=== PATIENT | male | born 1985 | race Caucasian/White ===

== ENCOUNTER 2018-06-29 12:20 | Inpatient (IN) | payer OTHER, MEDICAID ==
--- NOTE | 2018-06-29 13:02 | ED ---
General Adult HPI - General Source: patient, police, RN notes reviewed, old records reviewed Mode of arrival: ambulatory Limitations: no limitations <Celso Snell - Last Filed: 06/29/18 21:00> <Beny Montiel - Last Filed: 06/30/18 19:35> - General Chief complaint: Psychiatric Symptoms Stated complaint: Mental Health Time Seen by Provider: 06/29/18 12:35 - History of Present Illness Initial comments: 33-year-old male presenting for psychiatric evaluation. Patient is brought in by state police. Patient's had been concerned as the patient was making some comments including "please tell the children I love them", he then left the home with and axe. Patient denies specific suicidal ideation. He has had some anger issues and increased agitation. He's had a verbal altercation with his [id number] and has been quite frustrated with this relationship. He denies specific homicidal ideation although I believe that his may have been concerned when he was taking the Axe from the house. No right medical problems. No other complaints. (Celso Snell) - Related Data Home Medications Medication Instructions Recorded Confirmed Unable To Assess [Unable to Assess] 06/29/18 06/29/18 Allergies Allergy/AdvReac Type Severity Reaction Status Date / Time venlafaxine Allergy Unknown Verified 06/30/18 19:18 Review of Systems ROS Other: All systems not noted in ROS Statement are negative. <Celso Snell - Last Filed: 06/29/18 21:00> ROS Other: All systems not noted in ROS Statement are negative. <Beny Montiel - Last Filed: 06/30/18 19:35> ROS Statement: Those systems with pertinent positive or pertinent negative responses have been documented in the HPI. Past Medical History Past Medical History: No Reported History History of Any Multi-Drug Resistant Organisms: MRSA Date of last positivie culture/infection: 2010 Past Surgical History: No Surgical Hx Reported Past Psychological History: PTSD Smoking Status: Current every day smoker Past Alcohol Use History: None Reported Past Drug Use History: Marijuana <Celso Snell - Last Filed: 06/29/18 21:00> General Exam Limitations: no limitations General appearance: alert, in no apparent distress Head exam: Present: atraumatic, normocephalic Eye exam: Present: normal appearance, PERRL ENT exam: Present: normal exam Neck exam: Present: normal inspection. Absent: tenderness, meningismus Respiratory exam: Present: normal lung sounds bilaterally. Absent: respiratory distress, wheezes GI/Abdominal exam: Present: soft. Absent: distended, tenderness Neurological exam: Present: alert, oriented X3, CN II-XII intact, motor sensory deficit Psychiatric exam: Present: agitated. Absent: homicidal ideation, suicidal ideation Skin exam: Present: warm, dry, intact. Absent: cyanosis, diaphoretic <Celso Snell - Last Filed: 06/29/18 21:00> Course <Celso Snell - Last Filed: 06/29/18 21:00> <Beny oMntiel - Last Filed: 06/30/18 19:35> Vital Signs 06/29/18 06/29/18 06/30/18 12:40 16:41 06:00 Temperature 98.1 F 97.7 F Pulse Rate 92 79 62 Respiratory 18 16 16 Rate Blood Pressure 147/81 139/71 121/71 O2 Sat by Pulse 92 L 96 99 Oximetry 06/30/18 06/30/18 16:46 19:08 Temperature 97.9 F 98.7 F Pulse Rate 66 66 Respiratory 18 18 Rate Blood Pressure 112/56 135/63 O2 Sat by Pulse 99 99 Oximetry - Reevaluation(s) Reevaluation #1: 06/29/18 1734 Patient medically cleared, awaiting EPS evaluation and final disposition. ( Celso Snell) 06/30/18 19:33 Notified by mental health services requesting a new clinical certificate for patient. Patient was reevaluated by myself, Dr. Montiel. Patient states he started medication for anger and PTSD around 6 weeks ago. Patient has been taking this. Patient states despite this she feels like symptoms are getting worse. Patient does admit to having anger problems and thoughts of harming people. Patient denies suicidal thoughts. Patient denies hallucinations. Patient denies physical complaints. Patient denies alcohol or street drug use except for occasional marijuana. Petition does have concern for patient caring around and acts and threatening family members with it. There is also concern for suicidal statements and concerns for auditory hallucinations. Positive clinical certificate completed. (Beny Montiel) Medical Decision Making - Lab Data Result diagrams: 06/29/18 17:57 06/29/18 17:57 <Celso Snell - Last Filed: 06/29/18 21:00> - Lab Data Result diagrams: 06/29/18 17:57 06/29/18 17:57 <Beny Montiel - Last Filed: 06/30/18 19:35> - Lab Data Lab Results 06/29/18 06/29/18 06/29/18 Range/Units 12:52 12:52 17:57 WBC 7.1 (3.8-10.6) k/uL RBC 4.85 (4.30-5.90) m/uL Hgb 14.9 (13.0-17.5) gm/dL Hct 44.5 (39.0-53.0) % MCV 91.8 (80.0-100.0) fL MCH 30.7 (25.0-35.0) pg MCHC 33.4 (31.0-37.0) g/dL RDW 13.3 (11.5-15.5) % Plt Count 223 (150-450) k/uL Neutrophils % 59 % Lymphocytes % 31 % Monocytes % 4 % Eosinophils % 4 % Basophils % 0 % Neutrophils # 4.2 (1.3-7.7) k/uL Lymphocytes # 2.2 (1.0-4.8) k/uL Monocytes # 0.3 (0-1.0) k/uL Eosinophils # 0.3 (0-0.7) k/uL Basophils # 0.0 (0-0.2) k/uL Sodium (137-145) mmol/L Potassium (3.5-5.1) mmol/L Chloride (98-107) mmol/L Carbon Dioxide (22-30) mmol/L Anion Gap mmol/L BUN (9-20) mg/dL Creatinine (0.66-1.25) mg/dL Est GFR (CKD-EPI)AfAm (>60 ml/min/1.73 sqM) Est GFR (CKD-EPI)NonAf (>60 ml/min/1.73 sqM) Glucose (74-99) mg/dL Calcium (8.4-10.2) mg/dL Total Bilirubin (0.2-1.3) mg/dL AST (17-59) U/L ALT (21-72) U/L Alkaline Phosphatase (38-126) U/L Total Protein (6.3-8.2) g/dL Albumin (3.5-5.0) g/dL Urine Color Yellow Urine Appearance Clear (Clear) Urine pH 6.5 (5.0-8.0) Ur Specific [place] 1.008 (1.001-1.035) Urine Protein Negative (Negative) Urine Glucose (UA) 2+ H (Negative) Urine Ketones Negative (Negative) Urine Blood Negative (Negative) Urine Nitrite Negative (Negative) Urine Bilirubin Negative (Negative) Urine Urobilinogen <2.0 (<2.0) mg/dL Ur Leukocyte Esterase Negative (Negative) Urine Opiates Screen Not Detected (NotDetected) Ur Oxycodone Screen Not Detected (NotDetected) Urine Methadone Screen Not Detected (NotDetected) Ur Propoxyphene Screen Not Detected (NotDetected) Ur Barbiturates Screen Not Detected (NotDetected) U Tricyclic Antidepress Not Detected (NotDetected) Ur Phencyclidine Scrn Not Detected (NotDetected) Ur Amphetamines Screen Not Detected (NotDetected) U Methamphetamines Scrn Not Detected (NotDetected) U Benzodiazepines Scrn Not Detected (NotDetected) Urine Cocaine Screen Not Detected (NotDetected) U Marijuana (THC) Screen Detected H (NotDetected) 06/29/18 Range/Units 17:57 WBC (3.8-10.6) k/uL RBC (4.30-5.90) m/uL Hgb (13.0-17.5) gm/dL Hct (39.0-53.0) % MCV (80.0-100.0) fL MCH (25.0-35.0) pg MCHC (31.0-37.0) g/dL RDW (11.5-15.5) % Plt Count (150-450) k/uL Neutrophils % % Lymphocytes % % Monocytes % % Eosinophils % % Basophils % % Neutrophils # (1.3-7.7) k/uL Lymphocytes # (1.0-4.8) k/uL Monocytes # (0-1.0) k/uL Eosinophils # (0-0.7) k/uL Basophils # (0-0.2) k/uL Sodium 144 (137-145) mmol/L Potassium 4.2 (3.5-5.1) mmol/L Chloride 113 H (98-107) mmol/L Carbon Dioxide 27 (22-30) mmol/L Anion Gap 4 mmol/L BUN 6 L (9-20) mg/dL Creatinine 0.72 (0.66-1.25) mg/dL Est GFR (CKD-EPI)AfAm >90 (>60 ml/min/1.73 sqM) Est GFR (CKD-EPI)NonAf >90 (>60 ml/min/1.73 sqM) Glucose 87 (74-99) mg/dL Calcium 9.1 (8.4-10.2) mg/dL Total Bilirubin 0.4 (0.2-1.3) mg/dL AST 25 (17-59) U/L ALT 33 (21-72) U/L Alkaline Phosphatase 69 (38-126) U/L Total Protein 6.5 (6.3-8.2) g/dL Albumin 3.8 (3.5-5.0) g/dL Urine Color Urine Appearance (Clear) Urine pH (5.0-8.0) Ur Specific [place] (1.001-1.035) Urine Protein (Negative) Urine Glucose (UA) (Negative) Urine Ketones (Negative) Urine Blood (Negative) Urine Nitrite (Negative) Urine Bilirubin (Negative) Urine Urobilinogen (<2.0) mg/dL Ur Leukocyte Esterase (Negative) Urine Opiates Screen (NotDetected) Ur Oxycodone Screen (NotDetected) Urine Methadone Screen (NotDetected) Ur Propoxyphene Screen (NotDetected) Ur Barbiturates Screen (NotDetected) U Tricyclic Antidepress (NotDetected) Ur Phencyclidine Scrn (NotDetected) Ur Amphetamines Screen (NotDetected) U Methamphetamines Scrn (NotDetected) U Benzodiazepines Scrn (NotDetected) Urine Cocaine Screen (NotDetected) U Marijuana (THC) Screen (NotDetected) Disposition <Celso Snell - Last Filed: 06/29/18 21:00> Is patient prescribed a controlled substance at d/c from ED?: No Decision Time: 19:35 <Beny Montiel - Last Filed: 06/30/18 19:35> Clinical Impression: Acute psychosis Disposition: TRANSFER TO PSYCH HOSP/UNIT
[2018-06-29 13:40] LABS: Amphetamine Screen,Urine Not Detected (NotDetected); Barbiturate Screen,Urine Not Detected (NotDetected); Benzodiazepines Screen,Urine Not Detected (NotDetected); Cocaine Screen,Urine Not Detected (NotDetected); Methadone Screen, Urine Not Detected (NotDetected); Opiate Screen,Urine Not Detected (NotDetected); Oxycodone Screen, Urine Not Detected (NotDetected); Phencyclidine Screen,Urine Not Detected (NotDetected); Tricyclic Antidepressant,Urine Not Detected (NotDetected); Urn Cannabinoid Scrn Detected (NotDetected)
[2018-06-29] MEDS ORDERED: LORazepam 1 MG TAB PO STA (15:03)
[2018-06-29 17:48] LABS: Appearance,Urine Clear (Clear); Bilirubin,Urine Negative (Negative); Blood,Urine Negative (Negative); Color,Urine Yellow; Glucose,Urine (UA) 2+ (Negative); Ketones,Urine Negative (Negative); Leukocyte Esterase,Urine Negative (Negative); Nitrite,Urine Negative (Negative); PH, Urine 6.5 (5.0-8.0); Protein,Urine Negative (Negative); Specific Gravity,Urine 1.008 (1.001-1.035); Urobilinogen,Urine <2.0 mg/dL (<2.0)
[2018-06-29 18:19] LABS: Basophils % (A) 0 %; Eosinophils # (A) 0.3 k/uL (0-0.7); Eosinophils % (A) 4 %; HCT 44.5 % (39.0-53.0); HGB 14.9 gm/dL (13.0-17.5); Lymphocytes # (A) 2.2 k/uL (1.0-4.8); Lymphocytes % (A) 31 %; MCH 30.7 pg (25.0-35.0); MCHC 33.4 g/dL (31.0-37.0); MCV 91.8 fL (80.0-100.0); Mean Platelet Volume 7.2; Monocytes # (A) 0.3 k/uL (0-1.0); Monocytes % (A) 4 %; Neutrophils # (A) 4.2 k/uL (1.3-7.7); Neutrophils % (A) 59 %; Platelet Count 223 k/uL (150-450); RBC 4.85 m/uL (4.30-5.90); RDW 13.3 % (11.5-15.5); WBC 7.1 k/uL (3.8-10.6)
[2018-06-29 18:31] LABS: ALT 33 U/L (21-72); AST 25 U/L (17-59); Albumin 3.8 g/dL (3.5-5.0); Alkaline Phosphatase 69 U/L (38-126); Anion Gap 4 mmol/L; Blood Urea Nitrogen 6 mg/dL (9-20); Calcium 9.1 mg/dL (8.4-10.2); Carbon Dioxide 27 mmol/L (22-30); Chloride 113 mmol/L (98-107); Glucose 87 mg/dL (74-99); Potassium 4.2 mmol/L (3.5-5.1); Sodium 144 mmol/L (137-145); Total Bilirubin 0.4 mg/dL (0.2-1.3); Total Protein 6.5 g/dL (6.3-8.2)
[2018-06-29] MEDS ORDERED: ZIPRASIDONE 20 MG CAP PO STA (23:49)
[2018-06-30] MEDS ORDERED: MAGNESIUM HYDROXIDE 2,400 MG/10 ML CUP PO PRN (20:51)
[2018-06-30] MEDS ORDERED: LORazepam 1 MG TAB PO PRN (20:51)
[2018-06-30] MEDS ORDERED: ZIPRASIDONE 20 MG VIAL IM PRN (20:51)
[2018-06-30] MEDS ORDERED: MAG HYDROX/AL HYDROX/SIMETH 30 ML CUP PO PRN (20:51)
[2018-06-30] MEDS ORDERED: diphenhydrAMINE 25 MG CAP PO PRN (21:17)
--- NOTE | 2018-06-30 21:18 | P.HPMEDMHU ---
History of Present Illness H&P Date: 06/30/18 Chief Complaint: MHU HPI The patient is a pleasant 33-year-old male with a past medical history of PTSD, anxiety, and depression who is admitted to the mental health unit with concerns for his safety after was purported by his that he was making comments suggestive of possible self-harm such as "please tell the children i Love them" and subsequently returned with an axe. Patient denies any suicidal or homicidal ideation. Reports a history of chronic PTSD which she has been self-medicating for the better part of the last 2 years with Adderall and Marijuana. [facility] and was [facility] a medication similar to Effexor which was incidentally discontinued due to severe rash. The patient is unable to recall the name of the medication, he does report a lower truncal abdominal and upper thigh rash over the last 4 weeks that seems to be dissipating, he reports the rash is not as itchy, not as inflamed and is not as bothersome as when it initially started. Patient also has a history of asthma that appears to be well controlled, he denies any cough shortness of breath or wheezes. Review of Systems Pertinent positives per HPI, all other review of systems are otherwise negative Past Medical History Past Medical History: No Reported History, Asthma Additional Past Medical History / Comment(s): Anxiety. Depression. PTSD History of Any Multi-Drug Resistant Organisms: MRSA Date of last positivie culture/infection: 2010 Past Surgical History: No Surgical Hx Reported Past Psychological History: PTSD Smoking Status: Current every day smoker Past Alcohol Use History: None Reported Past Drug Use History: Marijuana Medications and Allergies Home Medications Medication Instructions Recorded Confirmed Type Unable To Assess [Unable to Assess] 06/29/18 06/29/18 History Allergies Allergy/AdvReac Type Severity Reaction Status Date / Time venlafaxine Allergy Unknown Verified 06/30/18 19:18 Physical Exam Vitals: Vital Signs Temp Pulse Resp BP Pulse Ox 06/30/18 19:08 98.7 F 66 18 135/63 99 06/30/18 16:46 97.9 F 66 18 112/56 99 06/30/18 06:00 97.7 F 62 16 121/71 99 Constitutional: No acute distress, conversant, pleasant Eyes: Anicteric sclerae, moist conjunctiva, no lid-lag, PERRLA ENMT: NC/AT,Oropharynx clear, no erythema, exudates Neck:Supple, FROM, no masses, or JVD, No carotid bruits; No thyromegaly Lungs: Clear to auscultation, Clear to percussion, Normal respiratory effort, no accessory muscle use Cardiovascular: Heart regular in rate and rhythm, No murmurs, gallops, or rubs no peripheral edema Abdominal: Soft Nontender, nom distended, no guarding, no rebound or rigidity, Normoactive bowel sounds No hepatomegaly, No splenomegaly, No palpable mass No abdominal wall hernia noted Skin: Papular rash on lower abdomen/trunck Extremities:No digital cyanosis No clubbing, Pedal pulses intact and symmetrical Radial pulses intact and symmetrical Normal gait and station, No calf tenderness Psychiatric: Alert and oriented to person, place and time, Appropriate affect Intact judgement Neuro: Muscles Strength 5/5 in all 4 extremities, Sensation to light touch grossly present throughout, Cranial nerves II-XII grossly intact. No focal sensory deficits Cranial Nerve Examination - Cranial Nerves Cranial Nerve II- Optic: Intact Cranial Nerve III- Oculomotor: Intact Cranial Nerve IV- Trochlear: Intact Cranial Nerve V- Trigeminal: Intact Cranial Nerve - Abducens: Intact Cranial Nerve VII- Facial: Intact Cranial Nerve VIII- Auditory: Intact Cranial Nerve IX- Glossopharyngeal: Intact Cranial Nerve X- Vagus: Intact Cranial Nerve XI- Accessory: Intact Cranial Nerve XII- Hypoglossal: Intact Results CBC & Chem 7: 06/29/18 17:57 06/29/18 17:57 Assessment and Plan (1) PTSD (post-traumatic stress disorder) Current Visit: Yes Status: Acute Code(s): F43.10 - POST-TRAUMATIC STRESS DISORDER, UNSPECIFIED SNOMED Code(s): 63542955 (2) Depression Current Visit: Yes Status: Acute Code(s): F32.9 - MAJOR DEPRESSIVE DISORDER , SINGLE EPISODE, UNSPECIFIED SNOMED Code(s): 65575308 (3) Asthma, mild Current Visit: Yes Status: Acute Code(s): J45.998 - OTHER ASTHMA SNOMED Code(s): 527282110 (4) Allergic drug rash Current Visit: Yes Status: Acute Code(s): L27.0 - GEN SKIN ERUPTION DUE TO DRUGS AND MEDS TAKEN INTERNALLY SNOMED Code(s): 25473584 (5) Marijuana abuse Current Visit: Yes Status: Acute Code(s): F12.10 - CANNABIS ABUSE, UNCOMPLICATED SNOMED Code(s): 40294478 Plan: The patient is admitted to the mental health unit we'll defer to inpatient psychiatric team regarding ongoing psychotropic medications along with cognitive behavioral therapy treatment of this patient. Otherwise his medical issues seem to be pretty stable, apparently has mild intermittent asthma without any acute exacerbation. Has a drug induced ALLERGIC rash which seems to be improving, patient is not significantly itchy has no complaints at this time, we will start Benadryl when necessary itchiness. We'll likely sign off on this patient today For any further questions or concerns please do not hesitate to contact the sound inpatient team. We appreciate the opportunity to be involved in the ongoing care of this patient.
[2018-07-01] MEDS ORDERED: NICOTINE 21MG/24HR PATCH TRANSDERM SCH (09:00)
--- NOTE | 2018-07-01 14:15 | P.HP ---
Psychiatric H&P - . H&P Date: 07/01/18 History & Physical: Allergies Allergy/AdvReac Type Severity Reaction Status Date / Time duloxetine [From Cymbalta] Allergy Severe Rash/Hives Verified 07/01/18 09:54 venlafaxine Allergy Unknown Verified 06/30/18 21:26 Vital Signs Temp 97.9 F 07/01/18 00:48 Pulse 75 07/01/18 00:48 Resp 16 07/01/18 00:48 BP 120/82 07/01/18 00:48 Pulse Ox 99 06/30/18 21:57 Intake & Output 06/30/18 07/01/18 07/01/18 18:59 06:59 18:59 Weight 77.564 kg Laboratory Last Values WBC 7.1 k/uL (3.8-10.6) 06/29/18 17:57 RBC 4.85 m/uL (4.30-5.90) 06/29/18 17:57 Hgb 14.9 gm/dL (13.0-17.5) 06/29/18 17:57 Hct 44.5 % (39.0-53.0) 06/29/18 17:57 MCV 91.8 fL (80.0-100.0) 06/29/18 17:57 MCH 30.7 pg (25.0-35.0) 06/29/18 17:57 MCHC 33.4 g/dL (31.0-37.0) 06/29/18 17:57 RDW 13.3 % (11.5-15.5) 06/29/18 17:57 Plt Count 223 k/uL (150-450) 06/29/18 17:57 Neutrophils % 59 % 06/29/18 17:57 Lymphocytes % 31 % 06/29/18 17:57 Monocytes % 4 % 06/29/18 17:57 Eosinophils % 4 % 06/29/18 17:57 Basophils % 0 % 06/29/18 17:57 Neutrophils # 4.2 k/uL (1.3-7.7) 06/29/18 17:57 Lymphocytes # 2.2 k/uL (1.0-4.8) 06/29/18 17:57 Monocytes # 0.3 k/uL (0-1.0) 06/29/18 17:57 Eosinophils # 0.3 k/uL (0-0.7) 06/29/18 17:57 Basophils # 0.0 k/uL (0-0.2) 06/29/18 17:57 Sodium 144 mmol/L (137-145) 06/29/18 17:57 Potassium 4.2 mmol/L (3.5-5.1) 06/29/18 17:57 Chloride 113 mmol/L (98-107) H 06/29/18 17:57 Carbon Dioxide 27 mmol/L (22-30) 06/29/18 17:57 Anion Gap 4 mmol/L 06/29/18 17:57 BUN 6 mg/dL (9-20) L 06/29/18 17:57 Creatinine 0.72 mg/dL (0.66-1.25) 06/29/18 17:57 Est GFR (CKD-EPI)AfAm >90 (>60 ml/min/1.73 sqM) 06/29/18 17:57 Est GFR (CKD-EPI)NonAf >90 (>60 ml/min/1.73 sqM) 06/29/18 17:57 Glucose 87 mg/dL (74-99) 06/29/18 17:57 Calcium 9.1 mg/dL (8.4-10.2) 06/29/18 17:57 Total Bilirubin 0.4 mg/dL (0.2-1.3) 06/29/18 17:57 AST 25 U/L (17-59) 06/29/18 17:57 ALT 33 U/L (21-72) 06/29/18 17:57 Alkaline Phosphatase 69 U/L (38-126) 06/29/18 17:57 Total Protein 6.5 g/dL (6.3-8.2) 06/29/18 17:57 Albumin 3.8 g/dL (3.5-5.0) 06/29/18 17:57 TSH 2.110 mIU/L (0.465-4.680) 06/29/18 17:57 Urine Color Yellow 06/29/18 12:52 Urine Appearance Clear (Clear) 06/29/18 12:52 Urine pH 6.5 (5.0-8.0) 06/29/18 12:52 Ur Specific [place] 1.008 (1.001-1.035) 06/29/18 12:52 Urine Protein Negative (Negative) 06/29/18 12:52 Urine Glucose (UA) 2+ (Negative) H 06/29/18 12:52 Urine Ketones Negative (Negative) 06/29/18 12:52 Urine Blood Negative (Negative) 06/29/18 12:52 Urine Nitrite Negative (Negative) 06/29/18 12:52 Urine Bilirubin Negative (Negative) 06/29/18 12:52 Urine Urobilinogen <2.0 mg/dL (<2.0) 06/29/18 12:52 Ur Leukocyte Esterase Negative (Negative) 06/29/18 12:52 Urine Opiates Screen Not Detected (NotDetected) 06/29/18 12:52 Ur Oxycodone Screen Not Detected (NotDetected) 06/29/18 12:52 Urine Methadone Screen Not Detected (NotDetected) 06/29/18 12:52 Ur Propoxyphene Screen Not Detected (NotDetected) 06/29/18 12:52 Ur Barbiturates Screen Not Detected (NotDetected) 06/29/18 12:52 U Tricyclic Antidepress Not Detected (NotDetected) 06/29/18 12:52 Ur Phencyclidine Scrn Not Detected (NotDetected) 06/29/18 12:52 Ur Amphetamines Screen Not Detected (NotDetected) 06/29/18 12:52 U Methamphetamines Scrn Not Detected (NotDetected) 06/29/18 12:52 U Benzodiazepines Scrn Not Detected (NotDetected) 06/29/18 12:52 Urine Cocaine Screen Not Detected (NotDetected) 06/29/18 12:52 U Marijuana (THC) Screen Detected (NotDetected) H 06/29/18 12:52 Assessment and Plan Assessment: Chief Complaint: [Shalom Kumari was brought to the emergency room by state police due to threatening behavior ] History of Present Illness: 33-year-old male presenting for psychiatric evaluation. Patient is brought in by state police. Patient's had been concerned as the patient was making some comments including "please tell the children I love them", he then left the home with and axe. Patient denies specific suicidal ideation. He has had some anger issues and increased agitation. He's had a verbal altercation with his [id number] and has been quite frustrated with this relationship. He denies specific homicidal ideation although I believe that his may have been concerned when he was taking the Axe from the house. No right medical problems. No other complaints. :S[place] in [place]. PTSD "I feel I was put on drugs that I don't need." Currently on 30% [facility] [place]. Past Medical History Past Medical History: No Reported History History of Any Multi-Drug Resistant Organisms: MRSA Date of last positivie culture/infection: 2010 Past Surgical History: No Surgical Hx Reported Past Psychological History: PTSD Smoking Status: Current every day smoker Past Alcohol Use History: None Reported Past Drug Use History: Marijuana Social history: States he was raised in a dysfunctional family The patient is a pleasant 33-year-old male with a past medical history of PTSD, anxiety, and depression who is admitted to the mental health unit with concerns for his safety after was purported by his that he was making comments suggestive of possible self-harm such as "please tell the children i Love them" and subsequently returned with an axe. Patient denies any suicidal or homicidal ideation. Reports a history of chronic PTSD which she has been self-medicating for the better part of the last 2 years with Adderall and Marijuana. [facility] and was prescribed a medication similar to Effexor which was incidentally discontinued due to severe rash. The patient is unable to recall the name of the medication, he does report a lower truncal abdominal and upper thigh rash over the last 4 weeks that seems to be dissipating, he reports the rash is not as itchy, not as inflamed and is not as bothersome as when it initially started. Patient also has a history of asthma that appears to be well controlled, he denies any cough shortness of breath or wheezes. Musculoskeletal Examination - Abnormal/Involuntary Movements: [none] Strength: [greater than antigravity (greater than/equal to 3/5) in all extremities:] Muscle Tone: [no impairment] Gait: [grossly normal] Station: [grossly normal] Mental Status Examination - General Appearance: [well groomed,casual, appears stated age] Speech/Language: [spontaneous, rapid, hesitant, halting,expressive,soft] Attitude/Behavior: [cooperative, guarded, withdrawn] Mood: [depressed, , anxious, fearful, hopelessness, recounting his history became tearful and hesitant to take any medications because of his bad experience in the past due to addiction to Xanax and opiates. He recently had a bad experience with venlafaxine which caused a rash. Affect: [ flat, incongruent, labile, blunted constricted] Orientation: [time, person, place situation] Thought Content: [wnl, ] Risk Factors: [Does not admit suicidal (ideations, plan), and/or Homicidal ( ideations, plan), other] Perception: [wnl] Thought Processes: [ circumstantial Concentration/Attention Span: [wnl[Per observation and interview with the patient] Recent Memory: [wnl, 3 out of 3 in 3 minutes] Remote Memory: [impaired] [past events, as related history] Intelligence: [average] [based on history, based on vocabulary, syntax, grammar , and content] Judgement: [poor] [per patient's behavior/history of present illness] Insight: [poor] [understanding severity of illness/history of present illness] Admitting Diagnosis: [Major depressive disorder with psychotic features and history of posttraumatic stress disorder] Patient Strengths - Housing stability: [x] Setting and pursuing goals, hopes, dreams, aspirations: [x] Patient Limitations: [no interests, intellectual impairment, complicated medical illness, legal issues, lack of social supports] Initial Plan of Care: [Is brought in by the police and a application for involuntary psychiatric admission was filled out, a first clinical medication was filled out emergency room and a second clinical certification for involuntary admission was done by myself today Estimated Length of Stay: [7 days] Initial Discharge Plan: [home, referred to therapist-[place]] Prognosis: [guarded] Justification for Inpatient Hospitalization - [agitation, anxiety, depression resulting in significant loss of functioning.] [Dangerous to others, or property with need for controlled environment.] [Emotional or behavioral conditions and complications requiring 24 hour medical and nursing care.] [Need for special drug therapy, or other therapeutic program requiring continuous hospitalization.] [Failure of social functioning.] [Legally mandated admission.] [Biomedical conditions and complications requiring 24 hour medical and nursing care.] [Failure of treatment at a lower level of care.] Plan: This 33-year-old male being admitted for involuntary psychiatric evaluation due to his instability of mood and anger. He'll be evaluated by psychiatry, medicine, social work, nursing staff, recreational therapy and will be treated and a multi specialty team approach which meets on a daily basis. He admitted into a therapeutic [place] milieu and will be seen daily for psychiatric evaluation and medication adjustments. There is questionable history of MRSA in the past some medicine should further evaluate. He does have a history of benzodiazepine use disorder which is in remission and opiate use disorder which is in remission. Since he is a and was discharged on further investigate why his discharge from the service and has 12 felony entitlements and a payee particularly in attention to his overall diagnosis and treatment. Time with Patient: Greater than 30
[2018-07-01] MEDS: ACETAMINOPHEN TAB 325 MG TAB PO PRN (21:15)
--- NOTE | 2018-07-02 12:19 | P.PN ---
Subjective Progress Note Date: 07/02/18 Principal diagnosis: Major depressive disorder and PTSD Chief Complaint: Shaolm Kumari was brought to the emergency room by state police due to threatening behavior. Today Shalom deferred for court treatment and is willing to start medications today ] History of Present Illness: 33-year-old male presenting for psychiatric evaluation. Patient is brought in by state police. Patient's had been concerned as the patient was making some comments including "please tell the children I love them", he then left the home with and axe. Patient denies specific suicidal ideation. He has had some anger issues and increased agitation. He's had a verbal altercation with his [id number] and has been quite frustrated with this relationship. He denies specific homicidal ideation although I believe that his may have been concerned when he was taking the Axe from the house. No right medical problems. No other complaints. :Served [place] in [place]. PTSD "I feel I was put on drugs that I don't need." Currently on 30% [employer] disability. That a long lengthy discussion about his behavior and what ended up in him getting here to the hospital. Mental Status Examination - General Appearance: [well groomed,casual, appears stated age] Speech/Language: [spontaneous, rapid, hesitant, halting,expressive,soft] Attitude/Behavior: [cooperative, guarded, withdrawn] Mood: [depressed, , anxious, fearful, hopelessness, recounting his history became tearful and hesitant to take any medications because of his bad experience in the past due to addiction to Xanax and opiates. He recently had a bad experience with venlafaxine which caused a rash. Affect: [ flat, incongruent, labile, blunted constricted] Orientation: [time, person, place situation] Thought Content: [wnl, ] Risk Factors: [Does not admit suicidal (ideations, plan), and/or Homicidal ( ideations, plan), other] Perception: [wnl] Thought Processes: [ circumstantial Concentration/Attention Span: [wnl[Per observation and interview with the patient] Recent Memory: [wnl, 3 out of 3 in 3 minutes] Remote Memory: [impaired] [past events, as related history] Intelligence: [average] [based on history, based on vocabulary, syntax, grammar , and content] Judgement: [poor] [per patient's behavior/history of present illness] Insight: [poor] [understanding severity of illness/history of present illness] Objective - Vital Signs Vital signs: Vital Signs Temp 97.8 F 07/02/18 04:51 Pulse 55 L 07/02/18 04:51 Resp 14 07/02/18 04:51 BP 110/58 07/02/18 04:51 Pulse Ox 99 06/30/18 21:57 - Labs CBC & Chem 7: 06/29/18 17:57 06/29/18 17:57 Assessment and Plan Assessment: Justification for Inpatient Hospitalization - [agitation, anxiety, depression resulting in significant loss of functioning.] [Dangerous to others, or property with need for controlled environment.] [Emotional or behavioral conditions and complications requiring 24 hour medical and nursing care.] [Need for special drug therapy, or other therapeutic program requiring continuous hospitalization.] [Failure of social functioning.] [Legally mandated admission.] [Biomedical conditions and complications requiring 24 hour medical and nursing care.] Admitting Diagnosis: [Major depressive disorder with psychotic features and history of posttraumatic stress disorder] Plan: Medical evaluation was completed. He does complain today of having low back pain and will check his hemoglobin A1c because of frequency and urgency and obtain high sensitivity CRP. He'll be started on Lamictal 25 mg by mouth daily at bedtime since he does complain of racing thoughts. Discussed the side effect benefit ratio and he was okay with taking the medication. Time with Patient: Greater than 30
[2018-07-02] MEDS: ACETAMINOPHEN TAB 325 MG TAB PO PRN (12:48)
[2018-07-02] MEDS ORDERED: lamoTRIgine 25 MG TAB PO SCH (20:00)
[2018-07-03] MEDS: ACETAMINOPHEN TAB 325 MG TAB PO PRN (11:45)
--- NOTE | 2018-07-03 16:49 | P.PN ---
Subjective Progress Note Date: 07/03/18 Principal diagnosis: Major depressive disorder and PTSD Chief Complaint: Shalom Kumari was brought to the emergency room by state police due to threatening behavior. Today Shalom deferred for court treatment and is willing to start medications today ] History of Present Illness: 33-year-old male presenting for psychiatric evaluation. Patient is brought in by state police. Patient's had been concerned as the patient was making some comments including "please tell the children I love them", he then left the home with and axe. Patient denies specific suicidal ideation. He has had some anger issues and increased agitation. He's had a verbal altercation with his [id number]-[id number] and has been quite frustrated with this relationship. He denies specific homicidal ideation although I believe that his may have been concerned when he was taking the Axe from the house. No right medical problems. No other complaints. :Served [place] in [place]. PTSD "I feel I was put on drugs that I don't need." Currently on 30% [employer] disability. That a long lengthy discussion about his behavior and what ended up in him getting here to the hospital. Mental Status Examination - General Appearance: [well groomed,casual, appears stated age] Speech/Language: [spontaneous, rapid, hesitant, halting,expressive,soft] Attitude/Behavior: [cooperative, guarded, withdrawn] Mood: [depressed, , anxious, fearful, hopelessness, recounting his history became tearful and hesitant to take any medications because of his bad experience in the past due to addiction to Xanax and opiates. He recently had a bad experience with venlafaxine which caused a rash. Affect: [ flat, incongruent, labile, blunted constricted] Orientation: [time, person, place situation] Thought Content: [wnl, ] Risk Factors: [Does not admit suicidal (ideations, plan), and/or Homicidal ( ideations, plan), other] Perception: [wnl] Thought Processes: [ circumstantial Concentration/Attention Span: [wnl[Per observation and interview with the patient] Recent Memory: [wnl, 3 out of 3 in 3 minutes] Remote Memory: [impaired] [past events, as related history] Intelligence: [average] [based on history, based on vocabulary, syntax, grammar , and content] Judgement: [poor] [per patient's behavior/history of present illness] Insight: [poor] [understanding severity of illness/history of present illness] Objective - Vital Signs Vital signs: Vital Signs Temp 98 F 07/03/18 06:47 Pulse 73 07/03/18 06:47 Resp 18 07/03/18 06:47 BP 134/61 07/03/18 06:47 Pulse Ox 99 06/30/18 21:57 - Labs CBC & Chem 7: 06/29/18 17:57 06/29/18 17:57 Assessment and Plan (1) Depression Current Visit: Yes Status: Acute Priority: Medium Code(s): F32.9 - MAJOR DEPRESSIVE DISORDER, SINGLE EPISODE, UNSPECIFIED SNOMED Code(s): 94128036 Plan: This 33-year-old male being admitted for involuntary psychiatric evaluation due to his instability of mood and anger. He'll be evaluated by psychiatry, medicine, social work, nursing staff, recreational therapy and will be treated and a multi specialty team approach which meets on a daily basis. He admitted into a therapeutic [place] milieu and will be seen daily for psychiatric evaluation and medication adjustments. There is questionable history of MRSA in the past some medicine should further evaluate. He does have a history of benzodiazepine use disorder which is in remission and opiate use disorder which is in remission. Since he is a and was discharged on further investigate why his discharge from the service and has 12 felony entitlements and a payee particularly in attention to his overall diagnosis and treatment. Time with Patient: Less than 30
[2018-07-03] MEDS ORDERED: lamoTRIgine 25 MG TAB PO SCH (20:00)
[2018-07-04] MEDS: ACETAMINOPHEN TAB 325 MG TAB PO PRN (11:37)
--- NOTE | 2018-07-04 14:24 | P.PN ---
Subjective Progress Note Date: 07/04/18 Principal diagnosis: Major depressive disorder and PTSD Chief Complaint: Shalom Kumari was brought to the emergency room by state police due to threatening behavior. ] History of Present Illness: 33-year-old male presenting for psychiatric evaluation. Patient is brought in by state police. Patient's had been concerned as the patient was making some comments including "please tell the children I love them", he then left the home with and axe. Patient denies specific suicidal ideation. He has had some anger issues and increased agitation. He's had a verbal altercation with his [id number] and has been quite frustrated with this relationship. He denies specific homicidal ideation although I believe that his may have been concerned when he was taking the Axe from the house. No right medical problems. No other complaints. Interval chief complaint today (07/04/2018) Open and honest Discussed today the feelings of father and step father and mother. 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 PTSD "I feel I was put on drugs that I don't need." Currently on 30% [employer] disability. That a long lengthy discussion about his behavior and what ended up in him getting here to the hospital. Mental Status Examination - General Appearance: [well groomed,casual, appears stated age] Speech/Language: [spontaneous, rapid, hesitant, halting,expressive,soft] Attitude/Behavior: [cooperative, guarded, withdrawn] Mood: [depressed, , anxious, fearful, hopelessness, recounting his history became tearful and hesitant to take any medications because of his bad experience in the past due to addiction to Xanax and opiates. He recently had a bad experience with venlafaxine which caused a rash. Affect: [ flat, incongruent, labile, blunted constricted] Orientation: [time, person, place situation] Thought Content: [wnl, ] Risk Factors: [Does not admit suicidal (ideations, plan), and/or Homicidal ( ideations, plan), other] Perception: [wnl] Thought Processes: [ circumstantial Concentration/Attention Span: [wnl[Per observation and interview with the patient] Recent Memory: [wnl, 3 out of 3 in 3 minutes] Remote Memory: [impaired] [past events, as related history] Intelligence: [average] [based on history, based on vocabulary, syntax, grammar , and content] Judgement: [fair] [per patient's behavior/history of present illness] Insight: [fair] [understanding severity of illness/history of present illness] Objective - Vital Signs Vital signs: Vital Signs Temp 97.9 F 07/04/18 06:58 Pulse 75 07/04/18 06:58 Resp 12 07/04/18 06:58 BP 114/58 07/04/18 06:58 Pulse Ox 99 06/30/18 21:57 - Labs CBC & Chem 7: 06/29/18 17:57 06/29/18 17:57 Assessment and Plan (1) Depression Current Visit: Yes Status: Acute Priority: Low Code(s): F32.9 - MAJOR DEPRESSIVE DISORDER, SINGLE EPISODE, UNSPECIFIED SNOMED Code(s): 27067017 Plan: Plan: Increase lamictal 150 mg po qhs; titrate until 200 mg and level. Labs CMP in the morning
[2018-07-04] MEDS ORDERED: lamoTRIgine 25 MG TAB PO ONE ×2 (20:00)
[2018-07-05 12:33] LABS: ALT 26 U/L (21-72); AST 28 U/L (17-59); Albumin 4.4 g/dL (3.5-5.0); Alkaline Phosphatase 62 U/L (38-126); Anion Gap 9 mmol/L; Blood Urea Nitrogen 17 mg/dL (9-20); Calcium 9.5 mg/dL (8.4-10.2); Carbon Dioxide 23 mmol/L (22-30); Chloride 107 mmol/L (98-107); Glucose 90 mg/dL (74-99); Potassium 4.9 mmol/L (3.5-5.1); Sodium 139 mmol/L (137-145); Total Bilirubin 0.4 mg/dL (0.2-1.3); Total Protein 7.2 g/dL (6.3-8.2)
[2018-07-05 13:05] LABS: Appearance,Urine Clear (Clear); Bilirubin,Urine Negative (Negative); Blood,Urine Negative (Negative); Color,Urine Light Yellow; Glucose,Urine (UA) Negative (Negative); Ketones,Urine Negative (Negative); Leukocyte Esterase,Urine Negative (Negative); Nitrite,Urine Negative (Negative); Protein,Urine Negative (Negative); Urobilinogen,Urine <2.0 mg/dL (<2.0)
[2018-07-05] MEDS: lamoTRIgine 100 MG TAB PO SCH (20:17)
[2018-07-05] MEDS ORDERED: lamoTRIgine 100 MG TAB PO SCH (21:00)
[2018-07-06 06:19] VITALS: RESP 14; TEMP 97.9
[2018-07-06] MEDS: lamoTRIgine 100 MG TAB PO SCH (07:40)
--- NOTE | 2018-07-06 10:02 | P.PN ---
Subjective Progress Note Date: 07/06/18 Principal diagnosis: Major depressive disorder and PTSD Chief Complaint: Shalom Kumari was brought to the emergency room by state police due to threatening behavior. ] History of Present Illness: 33-year-old male presenting for psychiatric evaluation. Patient is brought in by state police. Patient's had been concerned as the patient was making some comments including "please tell the children I love them", he then left the home with and axe. Patient denies specific suicidal ideation. He has had some anger issues and increased agitation. He's had a verbal altercation with his jftezs-ur-ont and has been quite frustrated with this relationship. He denies specific homicidal ideation although I believe that his may have been concerned when he was taking the Axe from the house. No right medical problems. No other complaints. Interval chief complaint today (07/05/2018) Open and honest Discussed today the feelings of father and step father and mother. 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 PTSD "I feel I was put on drugs that I don't need." Currently on 30% [employer] disability. That a long lengthy discussion about his behavior and what ended up in him getting here to the hospital. Mental Status Examination - General Appearance: [well groomed,casual, appears stated age] Speech/Language: [spontaneous, rapid, hesitant, halting,expressive,soft] Attitude/Behavior: [cooperative, guarded, withdrawn] Mood: [depressed, , anxious, fearful, hopelessness, recounting his history became tearful and hesitant to take any medications because of his bad experience in the past due to addiction to Xanax and opiates. He recently had a bad experience with venlafaxine which caused a rash. Affect: [ flat, incongruent, labile, blunted constricted] Orientation: [time, person, place situation] Thought Content: [wnl, ] Risk Factors: [Does not admit suicidal (ideations, plan), and/or Homicidal ( ideations, plan), other] Perception: [wnl] Thought Processes: [ circumstantial Concentration/Attention Span: [wnl[Per observation and interview with the patient] Recent Memory: [wnl, 3 out of 3 in 3 minutes] Remote Memory: [impaired] [past events, as related history] Intelligence: [average] [based on history, based on vocabulary, syntax, grammar , and content] Judgement: [fair] [per patient's behavior/history of present illness] Insight: [fair] [understanding severity of illness/history of present illness] Objective - Vital Signs Vital signs: Vital Signs Temp 97.9 F 07/06/18 06:09 Pulse 63 07/06/18 06:09 Resp 14 07/06/18 06:09 BP 114/56 07/06/18 06:09 Pulse Ox 99 06/30/18 21:57 - Labs CBC & Chem 7: 06/29/18 17:57 07/05/18 11:40 Assessment and Plan (1) Depression Current Visit: Yes Status: Acute Priority: Low Code(s): F32.9 - MAJOR DEPRESSIVE DISORDER, SINGLE EPISODE, UNSPECIFIED SNOMED Code(s): 75150061 Plan: Plan: Increase lamictal 1200 mg po qhs; Labs CMP in the morning
[2018-07-06 11:52] VITALS: BMI 26.9
[2018-07-06] MEDS ORDERED: lamoTRIgine 100 MG TAB PO SCH (20:00)
[2018-07-07 06:33] VITALS: BP 112/57; PULSE 58
--- NOTE | 2018-07-07 09:25 | P.DS ---
Providers Date of admission: 06/30/18 18:58 Expected date of discharge: 07/07/18 Attending physician: Boogie Grace DO Consults: 06/30/18 20:50 Consult Physician Routine Consulting Provider: Garth Huffman Consult Reason/Comments: Medical management Do you want consulting provider notified?: Already Contacted Primary care physician: Physician Nonstaff - Discharge Diagnosis(es) (1) Depression Current Visit: Yes Status: Acute Priority: Low Hospital Course: Chief Complaint: [Shalom Kumari was brought to the emergency room by state police due to threatening behavior ] History of Present Illness: 33-year-old male presenting for psychiatric evaluation. Patient is brought in by state police. Patient's had been concerned as the patient was making some comments including "please tell the children I love them", he then left the home with and axe. Patient denies specific suicidal ideation. He has had some anger issues and increased agitation. He's had a verbal altercation with his [id number]-rld and has been quite frustrated with this relationship. He denies specific homicidal ideation although I believe that his may have been concerned when he was taking the Axe from the house. No right medical problems. No other complaints. 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 PTSD "I feel I was put on drugs that I don't need." Currently on 30% [employer] disability.Past Medical History Past Medical History: No Reported History History of Any Multi-Drug Resistant Organisms: MRSA Date of last positivie culture/infection: 2010 Past Surgical History: No Surgical Hx Reported Past Psychological History: PTSD Smoking Status: Current every day smoker Past Alcohol Use History: None Reported Past Drug Use History: Marijuana Social history: States he was raised in a dysfunctional family Mental Status Examination - General Appearance: [well groomed,casual, appears stated age] Speech/Language: [spontaneous, rapid, hesitant, halting,expressive,soft] Attitude/Behavior: [cooperative, guarded, withdrawn] Mood: [depressed, , anxious, fearful, hopelessness, recounting his history became tearful and hesitant to take any medications because of his bad experience in the past due to addiction to Xanax and opiates. He recently had a bad experience with venlafaxine which caused a rash. Affect: [ wnl] Orientation: [time, person, place situation] Thought Content: [wnl, ] Risk Factors: [Does not admit suicidal (ideations, plan), and/or Homicidal ( ideations, plan), other] Perception: [wnl] Thought Processes: [ wnl Concentration/Attention Span: [wnl[Per observation and interview with the patient] Recent Memory: [wnl, 3 out of 3 in 3 minutes] Remote Memory: [wnl] [past events, as related history] Intelligence: [average] [based on history, based on vocabulary, syntax, grammar , and content] Judgement: [good] [per patient's behavior/history of present illness] Insight: [good] [understanding severity of illness/history of present illness] Patient Condition at Discharge: Stable Plan - Discharge Summary Discharge Rx Participant: No New Discharge Prescriptions: New lamoTRIgine [LaMICtal] 200 mg PO 1999 30 Days #30 tab Discontinued methylPREDNISolone Dose Pack [Medrol Dose Pack] 4 mg PO DIRECTED diphenhydrAMINE [Benadryl] 25 mg PO HS Cholecalciferol [Vitamin D3] 4,000 unit PO DAILY DULoxetine HCL [Cymbalta] 30 mg PO DAILY Discharge Medication List lamoTRIgine [LaMICtal] 200 mg PO 1999 30 Days #30 tab 07/07/18 [Rx] Follow up Appointment(s)/Referral(s): Nonstaff,Physician [Primary Care Provider] - 1-2 days Discharge Disposition: HOME SELF-CARE
== END 2018-07-07 10:59 | disposition home or self-care (01) | DRG 885 ==
LOC: EC 12:20 → 3MHU 06-30 18:58
PROVIDERS: ADMIT Psychiatry & Neurology Psychiatry; ATTEND Psychiatry & Neurology Psychiatry
DX: F32.3 Major depressive disorder, single episode, severe with psychotic features (principal); F17.200 Nicotine dependence, unspecified, uncomplicated; F43.12 Post-traumatic stress disorder, chronic; J45.20 Mild intermittent asthma, uncomplicated; F17.210 Nicotine dependence, cigarettes, uncomplicated; Z86.14 Personal history of Methicillin resistant Staphylococcus aureus infection; L27.0 Generalized skin eruption due to drugs and medicaments taken internally; T43.215A Adverse effect of selective serotonin and norepinephrine reuptake inhibitors, initial encounter; Z79.899 Other long term (current) drug therapy
CPT/HCPCS: 36415; 80053; 80306; 81003; 82075; 83036; 84443; 85025; 86140; 99285